=== PATIENT | female | born 1955 | race Caucasian/White ===

== ENCOUNTER 2020-12-20 08:01 | Day surgery (SDC) | payer MEDICARE, BC ==
[~2020-12-20 08:01] MED LIST: Midazolam 1 MG/ML 2 ML SDV ONE; Propofol 200 MG/20 ML SDV ONE; fentaNYL 100 MCG/2 ML SDV ONE
[2020-12-20] MEDS ORDERED: Sodium Chloride 0.9% 1,000 ML IV SCH (08:45)
[2020-12-20] MEDS ORDERED: Midazolam 1 MG/ML 2 ML SDV ONE (09:55)
--- NOTE | 2020-12-20 14:48 | OR ---
DATE OF PROCEDURE: 12/20/2020 SURGEON: Rc Beltran MD PROCEDURE: Colonoscopy. FINDINGS: Normal colonoscopy. PREOPERATIVE DIAGNOSIS: Screening colonoscopy. POSTOPERATIVE DIAGNOSIS: Screening colonoscopy. RISKS: Risks, benefits, alternatives, and limitations including but not limited to infection, bleeding, perforation, and false positives and false negatives were also explained to the patient who wished to proceed. PROCEDURE IN DETAIL: The patient was placed in left lateral decubitus position. Digital rectal exam was performed without abnormality. Scope was introduced and advanced atraumatically to the ileocecal valve. A photo was taken of this. Scope was brought back to the ascending, transverse, descending colon, and retroflexed. No evidence of old or new blood. No masses. No polyps. No diverticulosis. The prep was acceptable with 90% luminal surface could be seen. Greater than 8 minutes was spent removing the scope. No abnormalities on retroflexion. The patient tolerated the procedure well. Rc Beltran MD /[id number]
== END 2020-12-20 11:45 | disposition home or self-care (01) ==
LOC: JP.SDS 08:01
PROVIDERS: ATTEND Surgery
DX: Z12.11 Encounter for screening for malignant neoplasm of colon (principal); I10 Essential (primary) hypertension; Z88.5 Allergy status to narcotic agent
CPT/HCPCS: G0121; J2250; J2704; J3010; J7030